=== PATIENT | female | born 1990 | race Caucasian/White ===

== ENCOUNTER 2019-09-29 05:30 | Inpatient (IN) | payer OTHER ==
[2019-09-29] MEDS: Lactated Ringer's 1,000 ML IV SCH ×2 (05:53→08:50)
[2019-09-29 06:01] VITALS: BMI 32.9
[2019-09-29] MEDS ORDERED: Diphenoxylate HCl/Atropine Tablet PO PRN ×2 (06:34)
[2019-09-29] MEDS ORDERED: Ibuprofen 800 MG TAB PO PRN (06:34)
[2019-09-29] MEDS ORDERED: Butorphanol Tartrate 1 MG/ML VIAL SLOW IVP PRN (06:34)
[2019-09-29] MEDS ORDERED: Promethazine HCl 25 MG/ML VIAL IM PRN (06:34)
[2019-09-29] MEDS ORDERED: Misoprostol 200 MCG TAB PR PRN (06:34)
[2019-09-29] MEDS ORDERED: Lidocaine 1% (PF) 30 ML VIAL SC PRN (06:34)
[2019-09-29] MEDS ORDERED: hydrALAZINE 20 MG/ML VIAL SLOW IVP PRN ×2 (06:34→14:26)
[2019-09-29] MEDS ORDERED: Methylergonovine 0.2 MG/ML VIAL IM PRN (06:34)
[2019-09-29] MEDS ORDERED: Carboprost 250 MCG/ML AMP IM PRN (06:34)
[2019-09-29] MEDS ORDERED: Acetaminophen 500 MG TAB PO PRN (06:34)
[2019-09-29] MEDS ORDERED: Ondansetron PF 4 MG/2 ML Vial IVP PRN ×2 (06:34→14:26)
[2019-09-29] MEDS ORDERED: HYDROcodone/Acetaminophen 5/325 mg Tablet PO PRN ×4 (06:34→14:26)
[2019-09-29] MEDS ORDERED: NS w/ Oxytocin 10 units 500 ML ONE (06:39)
[2019-09-29] MEDS ORDERED: Oxytocin 10 UNITS/ML VIAL ONE (06:39)
[2019-09-29] MEDS ORDERED: NS w/ Oxytocin 10 units 500 ML IV SCH (06:45)
[2019-09-29 07:08] LABS: Hemoglobin 11.4 g/dL (12.0-16.0); Mean Corpuscular HGB CONC 33.4 g/dL (32.0-36.0); Mean Corpuscular Hemoglobin 27.8 pg (27.0-31.0); Mean Corpuscular Volume 83.2 fL (78.0-98.0); Mean Platelet Volume 7.9 fL (7.4-10.4); Platelet Count 285 thou/uL (130-400); RBC Distribution Width 14.6 % (11.5-14.5); Red Blood Cell (RBC) Count 4.09 mill/uL (4.20-5.40); White Blood Cell (WBC) Count 10.6 thou/uL (4.8-10.8)
[2019-09-29 07:48] LABS: HBSAg Index 0.13 S/CO (0-0.99); Hep B Surf Ag Non-Reactive S/CO (NonReactive); Syphilis Antibody Nonreactive (Nonreactive); Syphilis Antibody Index 0.05 S/CO (<1.00 Non-Reactive)
--- NOTE | 2019-09-29 12:29 | PDOC.LDHP ---
Labor and Delivery H&P Chief complaint: scheduled induction HPI: Here for Elective IOL. Current gestational age (weeks): 39 Due date: 10/05/19 Dating criteria: last menstrual period Grav: 5 Para: 3 OB History Details: 2006 at 37 wk 6lbs 2008 40 8.2 2009 38 week. 8w4d with cholestasis 2019 current Current complications: none Current medications: pre- vitamins Previous surgical history: other (Breast augmentation 2014) Allergies/Adverse Reactions: Allergies Allergy/AdvReac Type Severity Reaction Status Date / Time sulfamethoxazole Allergy Verified 09/29/19 06:14 [From Bactrim] trimethoprim [From Bactrim] Allergy Verified 09/29/19 06:14 Social history: none - Physical Exam Vital signs reviewed and normal: yes General: breathing through contractions Lungs: nonlabored breathing Abdomen: gravid FHT: category 1 - Vaginal Exam cm dilated: 4 Effacement: 75% Station: -2 - OB Labs Blood type: O RH: negative Antibody Screen: negative HIV: negative RPR: negative HEPSAg: negative 1 hour GCT: negative GBS: negative Urine drug screen: negative Rubella: immune - Assessment L&D Assessment: elective induction at term - Plan Plan: admit to L&D, informed consent obtained
[2019-09-29] MEDS: NS / Oxytocin 40 units/1000ml 1,000 ML IV PRN ×2 (12:36→13:42)
--- NOTE | 2019-09-29 12:36 | PDOC.OPDEL ---
OB Operative/Delivery Note Delivery Dr/Surgeon: Light Pre-Delivery Diagnosis: active labor, elective induction Procedure/Post Delivery Dx: spontaneous vaginal delivery Weeks gestation: 39 Anesthesia: epidural - Findings A Sex: male Weight: 8 lb 3 oz - 1 min: 8 - 5 min: 9 - Additional Findings/Plan Placenta delivered: spontaneous Repaired Obstetrical Laceration: 1st degree (reparied with demabond) Estimated blood loss: 50ml Post delivery plan: routine recovery
[2019-09-29] MEDS ORDERED: Misoprostol 200 MCG TAB VAG PRN (14:26)
[2019-09-29] MEDS ORDERED: Lanolin Ointment 7 GM TUBE TOP PRN (14:26)
[2019-09-29] MEDS ORDERED: Milk Of Magnesia 30 ML UDCUP PO PRN (14:26)
[2019-09-29] MEDS ORDERED: Benzocaine-Menthol 82.5 ML CAN TOP PRN (14:26)
[2019-09-29] MEDS ORDERED: NS / Oxytocin 40 units/1000ml 1,000 ML IV SCH (14:26)
[2019-09-29] MEDS ORDERED: Bisacodyl 10 MG SUPP PR PRN (14:26)
[2019-09-29] MEDS: Ferrous Sulfate 325 MG TAB PO SCH (16:08)
[2019-09-29] MEDS ORDERED: Sodium Chloride 0.9% 10 ML ONE (17:49)
[2019-09-29] MEDS: Ibuprofen 800 MG TAB PO SCH (21:40)
[2019-09-29] MEDS: Docusate Calcium (SURFAK) 240 MG CAP PO SCH (21:40)
[2019-09-30] MEDS: Ibuprofen 800 MG TAB PO SCH ×3 (02:11→11:26)
[2019-09-30] MEDS: Ferrous Sulfate 325 MG TAB PO SCH ×2 (07:44→16:50)
[2019-09-30 08:17] VITALS: BP 94/57; TEMP 98.4
[2019-09-30] MEDS ORDERED: Prenatal Vitamin 1 TAB PO SCH (09:00)
[2019-09-30] MEDS: Docusate Calcium (SURFAK) 240 MG CAP PO SCH (09:28)
[2019-09-30] MEDS ORDERED: Adacel (T-DAP) 0.5 ML SYRINGE IM ONE (14:26)
== END 2019-09-30 17:40 | disposition home or self-care (01) | DRG 807 ==
LOC: L&D 05:32 → 3SW 14:45
PROVIDERS: ADMIT Student in an Organized Health Care Education/Training Program; ATTEND Student in an Organized Health Care Education/Training Program
PROC: 10907ZC Drainage of Amniotic Fluid, Therapeutic from Products of Conception, Via Natural or Artificial Opening (ICD-10-PCS; principal; 2019-09-29)
PROC: 10E0XZZ Delivery of Products of Conception, External Approach (ICD-10-PCS; 2019-09-29)
PROC: 3E0P7VZ Introduction of Hormone into Female Reproductive, Via Natural or Artificial Opening (ICD-10-PCS; 2019-09-29)
PROC: 3E033VJ Introduction of Other Hormone into Peripheral Vein, Percutaneous Approach (ICD-10-PCS; 2019-09-29)
PROC: 0HQ9XZZ Repair Perineum Skin, External Approach (ICD-10-PCS; 2019-09-29)
DX: O70.0 First degree perineal laceration during delivery (principal); Z37.0 Single live birth; Z88.2 Allergy status to sulfonamides; Z3A.38 38 weeks gestation of pregnancy
CPT/HCPCS: 36415; 85027; 85461; 86780; 86850; 86900; 86901; 87340; 90384; 96372; J0595; J2590